=== PATIENT | female | born 1990 | race Caucasian/White ===

== ENCOUNTER → 2021-12-19 | Outpatient (CLI) | payer OTHER ==
[2021-12-19 09:28] LABS: BUN 15 mg/dl (7-24); CHLORIDE 109 mmol/L (98-107); POTASSIUM 4.6 mmol/L (3.5-5.1); SODIUM 137 mmol/L (136-145)
[2021-12-19 09:31] LABS: ALKALINE PHOSPHATASE 61 U/L (45-117); CREATININE 0.83 mg/dL (0.55-1.02); SGOT/AST 30 IU/L (3-35); SGPT/ALT 79 U/L (12-78); TOTAL PROTEIN 7.1 gm/dL (6.4-8.2)
[2021-12-20 08:08] LABS: HEPATITIS B SURFACE AG Negative (Negative)
== END | disposition home or self-care (01) ==
LOC: LAB 08:30
PROVIDERS: ATTEND Registered Nurse
DX: B19.20 Unspecified viral hepatitis C without hepatic coma (principal); F11.10 Opioid abuse, uncomplicated

== ENCOUNTER → 2022-01-09 | Outpatient (CLI) | payer OTHER | END | disposition home or self-care (01) | LOC: RAD 09:47 | PROVIDERS: ATTEND Nurse Practitioner | DX: M54.12 Radiculopathy, cervical region (principal) ==